=== PATIENT | female | born 1995 | race American Indian/Alaskan Native ===

== ENCOUNTER 2021-09-14 14:35 | Emergency (ER) | payer MEDICAID ==
[2021-09-14 15:39] VITALS: BP 157/93
--- NOTE | 2021-09-14 16:02 | Emergency Department Report ---
<BRANNON GUADARRAMA - Last Filed: 09/16/21 12:57> ED General Adult HPI - General Chief complaint: Pain General Stated complaint: BODY ACHES Time Seen by Provider: 09/14/21 15:46 Source: patient Mode of arrival: Ambulatory Limitations: No Limitations - History of Present Illness Initial comments: 26-year-old -[place] female presents to the emergency room complaining of generalized muscle pain mostly in her thighs and lower back. Patient reports that she has been having increased pain for the last week. 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 She denies any rash at this time. She states that the ibuprofen helps some. She states it is worse when he gets cold. Patient reports she currently does not have a primary care provider. She denies any recent injuries. Onset/Timin -: month(s) Location: back, upper extremity, lower extremity Radiation: non-radiation Severity scale (0 -10): 7 Quality: aching Consistency: constant Improves with: none Associated Symptoms: malaise Treatments Prior to Arrival: none - Related Data Previous Rx's Medication Instructions Recorded Last Taken Type predniSONE [Deltasone] 40 mg PO QDAY #10 tab 09/14/21 Unknown Rx traMADoL [Ultram 50 MG tab] 50 mg PO Q6HR PRN #12 tablet 09/14/21 Unknown Rx Allergies Allergy/AdvReac Type Severity Reaction Status Date / Time fentanyl AdvReac Unknown Verified 09/14/21 15:40 nalbuphine [From Nubain] AdvReac Unknown Verified 09/14/21 15:40 ED Review of Systems Comment: All other systems reviewed and negative ED Past Medical Hx - Medications Home Medications: Home Medications Medication Instructions Recorded Confirmed Last Taken Type predniSONE [Deltasone] 40 mg PO QDAY #10 tab 09/14/21 Unknown Rx traMADoL [Ultram 50 MG tab] 50 mg PO Q6HR PRN #12 tablet 09/14/21 Unknown Rx ED Physical Exam - General Limitations: No Limitations General appearance: alert, in no apparent distress - Head Head exam: Present: atraumatic, normocephalic - Eye Eye exam: Present: normal appearance - Respiratory Respiratory exam: Absent: respiratory distress, accessory muscle use - Cardiovascular Cardiovascular Exam: Present: regular rate, normal rhythm. Absent: systolic murmur, diastolic murmur, rubs, gallop ED Medical Decision Making - Medical Decision Making 26-year-old -[place] female presents to the emergency room complaining of generalized muscle pain mostly in her thighs and lower back. Patient reports that she has been having increased pain for the last week but has had pain for a month. 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 She denies any rash at this time. She states that the ibuprofen helps some. She states it is worse when he gets cold. Patient reports she currently does not have a primary care provider. She denies any recent injuries. Patient is requesting a referral to a good internal medicine a primary care provider. Discussed with patient I will refer her to a provider. I will discharge her on tramadol and prednisone. I discussed with patient that she must follow-up as this is a chronic disease management and we do not treat for chronic pain. Patient verbalized understanding. ED Disposition Clinical Impression: Myalgia Disposition: HOME / SELF CARE / HOMELESS Is pt being admited?: No Does the pt Need Aspirin: No Condition: Stable Instructions: Polymyositis Additional Instructions: Please take medications as prescribed. Follow up with a PCP. Listed one below. Prescriptions: predniSONE [Deltasone] 40 mg PO QDAY #10 tab traMADoL [Ultram 50 MG tab] 50 mg PO Q6HR PRN #12 tablet PRN Reason: Pain Referrals: BELEM CARRENO FNP [Referring] - 3-5 Days URSULA KELLER JR, MD [Staff Physician] - 3-5 Days Forms: Work/School Release Form(ED) Time of Disposition: 16:10 <ALESSANDRO CAMPOS - Last Filed: 09/16/21 23:36> ED Review of Systems ROS: Stated complaint: BODY ACHES Other details as noted in HPI ED Course Vital Signs 09/14/21 15:38 Temperature 98.3 F Pulse Rate 86 Respiratory 14 Rate Blood Pressure 157/93 [Left] O2 Sat by Pulse 100 Oximetry Critical care attestation.: If time is entered above; I have spent that time in minutes in the direct care of this critically ill patient, excluding procedure time. ED Disposition Is pt being admited?: No Does the pt Need Aspirin: No
[2021-09-14] MEDS ORDERED: KETOROLAC 30 MG/1 ML INJ IM ONE (16:03)
[2021-09-14] MEDS ORDERED: dexAMETHasone 20 MG/5 ML VIAL IV ONE (16:03)
[2021-09-14] MEDS ORDERED: HYDROcodone/ACETAMINOPHEN 5-325 MG TAB PO ONE (16:11)
== END 2021-09-14 17:00 | disposition home or self-care (01) ==
LOC: ED 14:35
DX: M79.18 Myalgia, other site (principal); Z88.5 Allergy status to narcotic agent
CPT/HCPCS: 96372; 96374; 99282; J1100; J1885

== ENCOUNTER 2021-10-02 18:23 | Emergency (ER) | payer MEDICAID ==
[2021-10-02] MEDS ORDERED: ACETAMINOPHEN 500 MG TAB PO ONE (20:54)
[2021-10-02] MEDS ORDERED: IBUPROFEN 400 MG TAB PO ONE (20:54)
--- NOTE | 2021-10-02 20:56 | Emergency Department Report ---
ED General Adult HPI - General Chief complaint: Pain General Stated complaint: BODY ACHES Time Seen by Provider: 10/02/21 20:39 Source: patient, RN notes reviewed, old records reviewed Mode of arrival: Ambulatory Limitations: No Limitations - History of Present Illness Initial comments: The patient was evaluated in the emergency department for symptoms described in the history of present illness. He/she was evaluated in the context of the global COVID-19 pandemic, which necessitated consideration that the patient might be at risk for infection with the virus that causes COVID-19. Institutional protocols and algorithms that pertain to the evaluation of patients at risk for COVID-19 are in a state of rapid change based on information released by regulatory bodies including the CDC and federal and state organizations. These policies and algorithms were followed during the patient's care in the emergency department. Please note that these policies, procedures and recommendations changed on a rapid basis. The patient is a 26-year-old female who reports that she is not , who recently relocated here from [place], with a reported history of poly- /dermatomyositis, who presents to the ER with a complaint of generalized myalgias, which have been present for a few weeks/months. Her symptoms are worsened in the cold weather. She reports she has not had a CPK level checked in some time, and reports that her urine is just getting "a little bit darker." The patient denies fever, vomiting, diarrhea, and describes diffuse myalgias. She states that she had Covid a while back, and has been feeling poorly since being diagnosed with Covid. The patient reports that she has not obtained or establish care with an outpatient surgery specialist since relocating. She also does not have an outpatient primary care doctor. -: Gradual, week(s) Location: back, left, right, upper extremity, lower extremity Quality: aching Consistency: constant Improves with: rest Worsens with: movement, other (Exposure to the cold) - Related Data Previous Rx's Medication Instructions Recorded Last Taken Type predniSONE [Deltasone] 40 mg PO QDAY #10 tab 09/14/21 Unknown Rx Acetaminophen [Non-Aspirin Extra 500 mg PO Q6HR PRN #30 tablet 10/02/21 Unknown Rx Strength] Ibuprofen [Motrin] 400 mg PO Q8H PRN #30 tablet 10/02/21 Unknown Rx Allergies Allergy/AdvReac Type Severity Reaction Status Date / Time fentanyl AdvReac Unknown Verified 09/14/21 15:40 nalbuphine [From Nubain] AdvReac Unknown Verified 09/14/21 15:40 ED Review of Systems ROS: Stated complaint: BODY ACHES Other details as noted in HPI Constitutional: denies: fever Eyes: denies: eye discharge ENT: denies: epistaxis Respiratory: denies: cough Cardiovascular: denies: chest pain Gastrointestinal: denies: abdominal pain, nausea, vomiting, diarrhea Genitourinary: other (Dark-colored urine). denies: urgency, dysuria Musculoskeletal: myalgia Neurological: weakness (Generalized weakness) ED Past Medical Hx - Social History Smoking Status: Never Smoker Substance Use Type: None - Medications Home Medications: Home Medications Medication Instructions Recorded Confirmed Last Taken Type predniSONE [Deltasone] 40 mg PO QDAY #10 tab 09/14/21 Unknown Rx Acetaminophen [Non-Aspirin Extra 500 mg PO Q6HR PRN #30 tablet 10/02/21 Unknown Rx Strength] Ibuprofen [Motrin] 400 mg PO Q8H PRN #30 tablet 10/02/21 Unknown Rx ED Physical Exam - General Limitations: No Limitations General appearance: alert, in no apparent distress - Head Head exam: Present: atraumatic, normocephalic - Eye Eye exam: Present: normal appearance, EOMI. Absent: nystagmus - ENT ENT exam: Present: normal exam, normal orophraynx, mucous membranes moist, normal external ear exam - Neck Neck exam: Present: normal inspection, full ROM. Absent: tenderness, meningismus - Respiratory Respiratory exam: Present: normal lung sounds bilaterally. Absent: respiratory distress, wheezes, rales, rhonchi, stridor, decreased breath sounds - Cardiovascular Cardiovascular Exam: Present: regular rate, normal rhythm, normal heart sounds. Absent: bradycardia, tachycardia, irregular rhythm, systolic murmur, diastolic murmur, rubs, gallop - GI/Abdominal GI/Abdominal exam: Present: soft. Absent: distended, tenderness, guarding, rebound, rigid, pulsatile mass - Extremities Exam Extremities exam: Present: normal inspection, full ROM, other (2+ pulses noted in the bilateral upper and lower extremities. There is no palpable cord. negative Homans sign. Muscular compartments are soft. The pelvis is stable.). Absent: pedal edema, calf tenderness - Back Exam Back exam: Present: normal inspection, full ROM, paraspinal tenderness. Absent: tenderness, CVA tenderness (R), CVA tenderness (L), vertebral tenderness - Neurological Exam Neurological exam: Present: alert, oriented X3, normal gait, other (No facial droop. Tongue midline. Extraocular movements intact bilaterally. Facial sensation intact to light touch in V1, V2, V3 distribution bilaterally. 5 and a 5 strength in 4 extremities. Sensation intact to light touch in 4 extremities.). Absent: motor sensory deficit - Psychiatric Psychiatric exam: Present: normal affect, normal mood - Skin Skin exam: Present: warm, dry, intact, normal color. Absent: rash ED Course Vital Signs 10/02/21 20:22 Temperature 97.8 F Pulse Rate 83 Respiratory 18 Rate Blood Pressure 113/88 O2 Sat by Pulse 100 Oximetry - Reevaluation(s) Reevaluation #1: 10/02/21 21:38 Differential diagnosis, including the not limited to: Rhabdomyolysis, polymyositis, dermatomyositis Generalized myalgias Assessment and plan: 26-year-old female, who was afebrile, with reassuring vital signs, with soft muscular compartments, with a known history of polymyositis/dermatomyositis, who is not established care with an outpatient physician here in [place], presenting with generalized body aches, and report of dark-colored urine without dysuria. She reports she has not had a CPK level checked in some time. We will treat her symptoms. We will obtain a CPK level. Patient is advised to contact her private insurance company to obtain names, phone numbers and addresses of surgery specialist who may be in her network, and she is also advised that she may follow-up at a tertiary care center, such as [facility], [facility] or [facility] to establish care with an outpatient surgery specialist. Reassess after CPK has resulted 10/02/21 22:10 CK not elevated. Patient resting comfortably. Suitable to follow-up as an outpatient ED Medical Decision Making - Lab Data Vital Signs 10/02/21 20:22 Temperature 97.8 F Pulse Rate 83 Respiratory 18 Rate Blood Pressure 113/88 O2 Sat by Pulse 100 Oximetry Lab Results 10/02/21 Range/Units 21:03 Total Creatine Kinase 72 (30-135) units/L Critical care attestation.: If time is entered above; I have spent that time in minutes in the direct care of this critically ill patient, excluding procedure time. ED Disposition Clinical Impression: Myalgia Disposition: HOME / SELF CARE / HOMELESS Is pt being admited?: No Does the pt Need Aspirin: No Condition: Good Instructions: Musculoskeletal Pain Additional Instructions: Please take the prescribed pain medications as needed and directed. Drink copious water/fluids, and avoid heavy lifting and strenuous physical activity. Patient may return to work and be on light duty for the next week. If patient requires more time than 1 week to be on light duty, it is recommended that she follow-up with a primary care doctor, or surgery specialist. Recommend that patient contact her insurance provider to obtain list of rheumatologists who are in her network and/or geographic area. Alternatively, the patient may independently seek rheumatologic evaluation at a tertiary care hospital in [place], including [facility], [facility]. Please return to the emergency room right away with new pain, worsened pain, migration of pain, projectile vomiting, change in mental status, confusion, inability tolerate liquid feeds, new, worsened or different symptoms not present on the initial emergency room evaluation We also recommend that the patient follow-up with a primary care doctor within the next 2 weeks. Prescriptions: Ibuprofen [Motrin] 400 mg PO Q8H PRN #30 tablet PRN Reason: Pain , Severe (7-10) Acetaminophen [Non-Aspirin Extra Strength] 500 mg PO Q6HR PRN #30 tablet PRN Reason: Pain , Severe (7-10) Referrals: [facility] [Provider Group] - 3-5 Days [facility] [Provider Group] - 3-5 Days Forms: Work/School Release Form(ED)
[2021-10-02 22:39] VITALS: BP 112/74
== END 2021-10-02 22:40 | disposition home or self-care (01) ==
LOC: ED 18:23
DX: M79.10 Myalgia, unspecified site (principal)
CPT/HCPCS: 36415; 82550; 99283